=== PATIENT | male | born 1995 | race Caucasian/White ===

== ENCOUNTER 2018-10-22 22:49 | Emergency (ER) | payer MEDICAID ==
[~2018-10-22] VITALS: Ht 170.2 cm; Wt 88.0 kg
[2018-10-23] MEDS ORDERED: IBUPROFEN 600 MG TABLET ONE (00:20)
[2018-10-23] MEDS ORDERED: ONDANSETRON ODT 4 MG ONE (00:22)
[2018-10-23] MEDS ORDERED: ONDANSETRON ODT 4 MG PO ONE (00:30)
[2018-10-23] MEDS ORDERED: IBUPROFEN 600 MG TABLET PO ONE (00:30)
--- NOTE | 2018-10-23 00:44 | NUR ---
UPON GIVING PT DC INSTRUCTION PT INFORMED NAME WAS SPELLED WRONG. NAME CORRECTD BY REG. DC PAPERWORK REPRINTED. PT CONFIRMED CORRECT NAME AND . PT REQUESTING TO KEEP GOWN TO [facility] IN [facility]OS[facility] TO VISIT FRIENDS. PT WAS INFORMED HE MUST LEAVE GOWN HERE. PT AGREEABLE TO THIS.
[2018-10-23 00:45] VITALS: BP 141/81
--- NOTE | 2018-10-23 00:46 | NUR ---
PT DECLINED SLING FOR DC.
== END 2018-10-23 00:47 | disposition home or self-care (01) ==
LOC: ED 23:22
DX: S49.82XA Other specified injuries of left shoulder and upper arm, initial encounter (principal); X58.XXXA Exposure to other specified factors, initial encounter; Y93.89 Activity, other specified; Y92.009 Unspecified place in unspecified non-institutional (private) residence as the place of occurrence of the external cause; Y99.8 Other external cause status
CPT/HCPCS: 99283